=== PATIENT | male | born 1950 | race African-American/Black ===

== ENCOUNTER 2022-03-24 07:12 | Inpatient (IN) ==
[2022-03-24] MEDS ORDERED: Senna TAB 8.6 mg TAB PO PRN (18:22)
[2022-03-25 07:21] LABS: INR 3.27 (0.89-1.11)
[2022-03-25 07:40] LABS: Albumin 3.4 g/dL (3.2-5.2); Albumin/Globulin Ratio 1.2 (1-3); Calcium 9.5 mg/dL (8.6-10.3); Globulin 2.8 g/dL (2-4); Potassium 4.5 mmol/L (3.5-5.0); Total Bilirubin 0.5 mg/dL (0.2-1.0); Total Protein 6.2 g/dL (6.4-8.9)
[2022-03-25] MEDS: Potassium Chloride LIQUID 20 MEQ/15 ML LIQUID PO SCH (08:54)
[2022-03-25] MEDS ORDERED: Potassium Chloride LIQUID 20 MEQ/15 ML LIQUID PEG TUBE SCH (09:00)
[2022-03-26 06:39] LABS: INR 5.43 (0.89-1.11)
[2022-03-26] MEDS: Potassium Chloride LIQUID 20 MEQ/15 ML LIQUID PO SCH (08:48)
[2022-03-27 06:23] LABS: ABS Basophils 0.1 10^3/ul (0-0.2); ABS Eosinophils 0.2 10^3/ul (0-0.6); ABS Lymphocytes 2.2 10^3/ul (1.0-4.8); ABS Monocytes 0.6 10^3/ul (0-0.8); ABS Neutrophils 4.7 10^3/ul (1.5-7.7); Hematocrit 29 % (42-52); Lymphocyte % 28.8 %; Mean Corpuscular HGB Conc 35 g/dL (31-36); Mean Corpuscular Hemoglobin 32 pg (27-31); Mean Corpuscular Volume 94 fL (80-94); Mean Platelet Volume 7.3 fL (7.4-10.4); Platelet Count 392 10^3/uL (150-450); Red Blood Count 3.09 10^6 /uL (4.18-5.48); Red Cell Distribution Width 20 % (10-15); White Blood Count 7.7 10^3/uL (3.5-10.8)
[2022-03-27 06:40] LABS: Potassium 4.6 mmol/L (3.5-5.0)
[2022-03-27 06:41] LABS: Albumin 3.4 g/dL (3.2-5.2); Albumin/Globulin Ratio 1.2 (1-3); Calcium 9.1 mg/dL (8.6-10.3); Globulin 2.9 g/dL (2-4); Total Bilirubin 0.4 mg/dL (0.2-1.0); Total Protein 6.3 g/dL (6.4-8.9); eGFR CKD-EPI 61.8 (>60)
[2022-03-27 07:08] LABS: INR 6.44 (0.89-1.11)
[2022-03-27] MEDS: Potassium Chloride LIQUID 20 MEQ/15 ML LIQUID PO SCH (10:22)
[2022-03-28 06:11] LABS: INR 4.6 (0.89-1.11)
[2022-03-28] MEDS: Potassium Chloride LIQUID 20 MEQ/15 ML LIQUID PO SCH (11:17)
[2022-03-29 06:11] LABS: INR 2.95 (0.89-1.11)
[2022-03-29] MEDS: Potassium Chloride LIQUID 20 MEQ/15 ML LIQUID PO SCH (09:15)
[2022-03-29] MEDS: Warfarin DAILY REMINDER **NOTE FOLLOW UP SCH (23:32)
[2022-03-30] MEDS: Warfarin DAILY REMINDER **NOTE FOLLOW UP SCH (17:59)
[2022-03-31 06:30] LABS: INR 2.19 (0.89-1.11)
[2022-04-01] MEDS: Warfarin DAILY REMINDER **NOTE FOLLOW UP SCH ×2 (02:48→17:56)
[2022-04-01 08:58] LABS: INR 2.3 (0.89-1.11)
[2022-04-02 08:40] LABS: INR 2.23 (0.89-1.11)
[2022-04-02] MEDS: Warfarin DAILY REMINDER **NOTE FOLLOW UP SCH (19:37)
[2022-04-03 06:10] LABS: ABS Basophils 0.1 10^3/ul (0-0.2); ABS Eosinophils 0.2 10^3/ul (0-0.6); ABS Lymphocytes 2.1 10^3/ul (1.0-4.8); ABS Monocytes 0.7 10^3/ul (0-0.8); ABS Neutrophils 5.3 10^3/ul (1.5-7.7); Eosinophil % 2.7 %; Hematocrit 30 % (42-52); Hemoglobin 9.8 g/dL (14.0-18.0); Mean Corpuscular HGB Conc 33 g/dL (31-36); Mean Corpuscular Hemoglobin 30 pg (27-31); Mean Corpuscular Volume 92 fL (80-94); Mean Platelet Volume 6.6 fL (7.4-10.4); Platelet Count 352 10^3/uL (150-450); Red Blood Count 3.26 10^6 /uL (4.18-5.48); Red Cell Distribution Width 17 % (10-15); White Blood Count 8.4 10^3/uL (3.5-10.8)
[2022-04-03 06:19] LABS: INR 2.44 (0.89-1.11)
[2022-04-03 06:48] LABS: Albumin 3.3 g/dL (3.2-5.2); Albumin/Globulin Ratio 1.1 (1-3); Calcium 9.2 mg/dL (8.6-10.3); Globulin 2.9 g/dL (2-4); Potassium 4.7 mmol/L (3.5-5.0); Total Bilirubin 0.3 mg/dL (0.2-1.0); Total Protein 6.2 g/dL (6.4-8.9); eGFR CKD-EPI 59.5 (>60)
[2022-04-03] MEDS: Warfarin DAILY REMINDER **NOTE FOLLOW UP SCH (17:42)
[2022-04-04] MEDS: Warfarin DAILY REMINDER **NOTE FOLLOW UP SCH (17:41)
[2022-04-05 06:48] LABS: INR 1.88 (0.89-1.11)
[2022-04-06] MEDS: Warfarin DAILY REMINDER **NOTE FOLLOW UP SCH ×2 (00:28→20:24)
[2022-04-07 06:13] LABS: INR 2.36 (0.89-1.11)
[2022-04-07] MEDS: Warfarin DAILY REMINDER **NOTE FOLLOW UP SCH (17:09)
[2022-04-08 14:01] LABS: Urine Appearance Clear; Urine Bilirubin Negative (Negative); Urine Blood Negative (Negative); Urine Color Yellow; Urine Glucose Negative (Negative); Urine Ketones Negative (Negative); Urine Nitrite Negative (Negative); Urine Protein Negative (Negative); Urine Specific Gravity 1.011 (1.002-1.030); Urine Urobilinogen Negative (Negative)
[2022-04-09] MEDS: Warfarin DAILY REMINDER **NOTE FOLLOW UP SCH ×2 (02:06→17:35)
[2022-04-10 06:39] LABS: ABS Basophils 0.1 10^3/ul (0-0.2); ABS Eosinophils 0.2 10^3/ul (0-0.6); ABS Lymphocytes 2.1 10^3/ul (1.0-4.8); ABS Monocytes 0.8 10^3/ul (0-0.8); ABS Neutrophils 5.3 10^3/ul (1.5-7.7); Eosinophil % 2.6 %; Hematocrit 33 % (42-52); Hemoglobin 10.7 g/dL (14.0-18.0); Lymphocyte % 24.2 %; Mean Corpuscular HGB Conc 33 g/dL (31-36); Mean Corpuscular Hemoglobin 30 pg (27-31); Mean Corpuscular Volume 93 fL (80-94); Mean Platelet Volume 6.4 fL (7.4-10.4); Platelet Count 444 10^3/uL (150-450); Red Blood Count 3.55 10^6 /uL (4.18-5.48); Red Cell Distribution Width 17 % (10-15); White Blood Count 8.5 10^3/uL (3.5-10.8)
[2022-04-10 06:46] LABS: INR 3.21 (0.89-1.11)
[2022-04-10 07:34] LABS: Albumin 3.4 g/dL (3.2-5.2); Albumin/Globulin Ratio 1.1 (1-3); Calcium 9.5 mg/dL (8.6-10.3); Potassium 4.9 mmol/L (3.5-5.0); Total Bilirubin 0.3 mg/dL (0.2-1.0); Total Protein 6.4 g/dL (6.4-8.9); eGFR CKD-EPI 57.8 (>60)
[2022-04-10] MEDS: Warfarin DAILY REMINDER **NOTE FOLLOW UP SCH (17:10)
[2022-04-11] MEDS: Collagenase 250 units/gm OINT 1 tube TOPICAL SCH (16:55)
[2022-04-11] MEDS: Warfarin DAILY REMINDER **NOTE FOLLOW UP SCH (17:09)
[2022-04-12 06:05] LABS: INR 3.51 (0.89-1.11)
[2022-04-12] MEDS: Collagenase 250 units/gm OINT 1 tube TOPICAL SCH (09:46)
[2022-04-12] MEDS: Warfarin DAILY REMINDER **NOTE FOLLOW UP SCH (17:23)
[2022-04-13 06:34] LABS: INR 3.13 (0.89-1.11)
[2022-04-13] MEDS: Collagenase 250 units/gm OINT 1 tube TOPICAL SCH (08:46)
[2022-04-13] MEDS: Warfarin DAILY REMINDER **NOTE FOLLOW UP SCH (17:21)
[2022-04-14 06:32] LABS: INR 3.19 (0.89-1.11)
[2022-04-14] MEDS: Collagenase 250 units/gm OINT 1 tube TOPICAL SCH (08:17)
[2022-04-14] MEDS: Warfarin DAILY REMINDER **NOTE FOLLOW UP SCH (16:45)
[2022-04-15] MEDS: Collagenase 250 units/gm OINT 1 tube TOPICAL SCH (12:14)
[2022-04-15] MEDS: Warfarin DAILY REMINDER **NOTE FOLLOW UP SCH (17:00)
[2022-04-16 05:50] LABS: INR 3.49 (0.89-1.11)
[2022-04-16] MEDS: Collagenase 250 units/gm OINT 1 tube TOPICAL SCH (08:49)
[2022-04-16] MEDS: Warfarin DAILY REMINDER **NOTE FOLLOW UP SCH (20:52)
[2022-04-17 06:53] LABS: ABS Basophils 0.1 10^3/ul (0-0.2); ABS Eosinophils 0.2 10^3/ul (0-0.6); ABS Lymphocytes 2.1 10^3/ul (1.0-4.8); ABS Monocytes 0.8 10^3/ul (0-0.8); ABS Neutrophils 5.7 10^3/ul (1.5-7.7); Eosinophil % 2.3 %; Hematocrit 34 % (42-52); Hemoglobin 11.2 g/dL (14.0-18.0); Mean Corpuscular HGB Conc 33 g/dL (31-36); Mean Corpuscular Hemoglobin 30 pg (27-31); Mean Corpuscular Volume 91 fL (80-94); Mean Platelet Volume 6.7 fL (7.4-10.4); Platelet Count 449 10^3/uL (150-450); Red Blood Count 3.73 10^6 /uL (4.18-5.48); Red Cell Distribution Width 17 % (10-15); White Blood Count 8.8 10^3/uL (3.5-10.8)
[2022-04-17 06:58] LABS: INR 3.6 (0.89-1.11)
[2022-04-17 07:22] LABS: Albumin 3.5 g/dL (3.2-5.2); Albumin/Globulin Ratio 1.2 (1-3); Calcium 9.6 mg/dL (8.6-10.3); Potassium 4.6 mmol/L (3.5-5.0); Total Bilirubin 0.4 mg/dL (0.2-1.0); Total Protein 6.5 g/dL (6.4-8.9)
[2022-04-17] MEDS: Collagenase 250 units/gm OINT 1 tube TOPICAL SCH (10:44)
[2022-04-17] MEDS: Warfarin DAILY REMINDER **NOTE FOLLOW UP SCH (20:14)
[2022-04-18 05:50] LABS: INR 3.68 (0.89-1.11)
[2022-04-18] MEDS: Collagenase 250 units/gm OINT 1 tube TOPICAL SCH (11:10)
[2022-04-18] MEDS: Warfarin DAILY REMINDER **NOTE FOLLOW UP SCH (20:14)
[2022-04-19] MEDS: Collagenase 250 units/gm OINT 1 tube TOPICAL SCH (09:21)
[2022-04-19 12:43] LABS: INR 2.94 (0.89-1.11)
[2022-04-19] MEDS: Warfarin DAILY REMINDER **NOTE FOLLOW UP SCH (17:04)
[2022-04-20] MEDS: Collagenase 250 units/gm OINT 1 tube TOPICAL SCH (09:58)
[2022-04-20] MEDS: Warfarin DAILY REMINDER **NOTE FOLLOW UP SCH (17:31)
[2022-04-21 06:28] LABS: INR 2.08 (0.89-1.11)
[2022-04-21] MEDS: Collagenase 250 units/gm OINT 1 tube TOPICAL SCH (09:18)
[2022-04-21] MEDS: Warfarin DAILY REMINDER **NOTE FOLLOW UP SCH (17:22)
[2022-04-22] MEDS: Collagenase 250 units/gm OINT 1 tube TOPICAL SCH (08:26)
[2022-04-22] MEDS ORDERED: Influenza vaccine *QUAD* *2022-23* 0.5 ML SYRINGE IM ONE (09:17)
[2022-04-22] MEDS: Warfarin DAILY REMINDER **NOTE FOLLOW UP SCH (17:25)
[2022-04-23] MEDS: Collagenase 250 units/gm OINT 1 tube TOPICAL SCH (08:59)
[2022-04-23] MEDS: Warfarin DAILY REMINDER **NOTE FOLLOW UP SCH (16:37)
[2022-04-24 07:13] LABS: INR 1.91 (0.89-1.11)
[2022-04-24] MEDS ORDERED: Influenza vaccine *QUAD* *2022-23* 0.5 ML SYRINGE IM ONE (09:00)
[2022-04-24] MEDS: Collagenase 250 units/gm OINT 1 tube TOPICAL SCH (10:27)
[2022-04-24] MEDS: Warfarin DAILY REMINDER **NOTE FOLLOW UP SCH (17:56)
[2022-04-25] MEDS: Collagenase 250 units/gm OINT 1 tube TOPICAL SCH (10:12)
[2022-04-25] MEDS ORDERED: Influenza vaccine *QUAD* *2022-23* 0.5 ML SYRINGE IM ONE (12:00)
[2022-04-25] MEDS: Warfarin DAILY REMINDER **NOTE FOLLOW UP SCH (17:09)
[2022-04-26 06:40] LABS: ABS Eosinophils 0.2 10^3/ul (0-0.6); ABS Lymphocytes 2.2 10^3/ul (1.0-4.8); ABS Monocytes 0.8 10^3/ul (0-0.8); ABS Neutrophils 5.5 10^3/ul (1.5-7.7); Eosinophil % 2.6 %; Hematocrit 36 % (42-52); Hemoglobin 11.6 g/dL (14.0-18.0); Lymphocyte % 24.8 %; Mean Corpuscular HGB Conc 33 g/dL (31-36); Mean Corpuscular Hemoglobin 30 pg (27-31); Mean Corpuscular Volume 91 fL (80-94); Mean Platelet Volume 7.1 fL (7.4-10.4); Platelet Count 404 10^3/uL (150-450); Red Blood Count 3.93 10^6 /uL (4.18-5.48); Red Cell Distribution Width 17 % (10-15); White Blood Count 8.8 10^3/uL (3.5-10.8)
[2022-04-26 06:56] LABS: INR 1.83 (0.89-1.11)
[2022-04-26 07:09] LABS: Calcium 9.7 mg/dL (8.6-10.3); Potassium 4.5 mmol/L (3.5-5.0)
[2022-04-26 07:15] LABS: eGFR CKD-EPI 60.6 (>60)
[2022-04-26] MEDS: Collagenase 250 units/gm OINT 1 tube TOPICAL SCH (10:48)
[2022-04-26] MEDS: Warfarin DAILY REMINDER **NOTE FOLLOW UP SCH (17:15)
[2022-04-27 04:36] VITALS: BP 115/81
[2022-04-27 06:29] LABS: INR 1.92 (0.89-1.11)
[2022-04-27] MEDS ORDERED: Influenza vaccine *QUAD* *2022-23* 0.5 ML SYRINGE IM ONE (09:00)
[2022-04-27] MEDS: Collagenase 250 units/gm OINT 1 tube TOPICAL SCH (09:12)
== END 2022-04-27 12:55 | DRG 57 ==
LOC: PMRU 10:58
PROVIDERS: ADMIT Physical Medicine & Rehabilitation; ATTEND Physical Medicine & Rehabilitation